=== PATIENT | male | born 1985 | race Hispanic/Latino ===

== ENCOUNTER 2017-12-06 14:01 | Emergency (ER) | payer OTHER ==
[~2017-12-06] VITALS: Ht 193 cm; Wt 141.0 kg
[2017-12-06 15:15] VITALS: BP 144/74
== END 2017-12-06 15:15 | disposition home or self-care (01) | DRG 605 ==
LOC: ED 14:01
DX: S20.221A Contusion of right back wall of thorax, initial encounter (principal); M54.6 Pain in thoracic spine; M54.5 Low back pain; R07.81 Pleurodynia; W31.82XA Contact with other commercial machinery, initial encounter; Y93.89 Activity, other specified; Y92.89 Other specified places as the place of occurrence of the external cause; Y99.0 Civilian activity done for income or pay